=== PATIENT | female | born 1965 | race Caucasian/White ===

== ENCOUNTER 2016-03-29 12:03 | Emergency (ER) | payer MEDICAID ==
[~2016-03-29] VITALS: Ht 157.5 cm; Wt 95.3 kg
[2016-03-29 12:35] VITALS: BP 136/69
== END 2016-03-29 14:32 | disposition home or self-care (01) ==
LOC: ER 12:03
DX: S29.012A Strain of muscle and tendon of back wall of thorax, initial encounter (principal); E11.9 Type 2 diabetes mellitus without complications; V49.9XXA Car occupant (driver) (passenger) injured in unspecified traffic accident, initial encounter; Y93.89 Activity, other specified; Y99.8 Other external cause status; Y92.488 Other paved roadways as the place of occurrence of the external cause

== ENCOUNTER 2019-04-06 09:10 | Emergency (ER) | payer MEDICAID ==
[~2019-04-06] VITALS: Ht 157.5 cm; Wt 97.5 kg
[2019-04-06 09:30] VITALS: BP 147/78
== END 2019-04-06 11:15 | disposition home or self-care (01) ==
LOC: ER 09:10
DX: S92.912A Unspecified fracture of left toe(s), initial encounter for closed fracture (principal); W22.8XXA Striking against or struck by other objects, initial encounter; Y93.01 Activity, walking, marching and hiking; Y92.89 Other specified places as the place of occurrence of the external cause; Y99.8 Other external cause status
CPT/HCPCS: 73630

== ENCOUNTER 2019-08-26 10:59 | Emergency (ER) | payer MEDICAID ==
[~2019-08-26] VITALS: Ht 157.5 cm; Wt 98.0 kg
[2019-08-26] MEDS ORDERED: FLUORESCEIN SOD 1 MG TEST STRIP RIGHTEYE ONE (12:15)
[2019-08-26] MEDS ORDERED: TETRACAINE HCL 0.5% OPTH(EYE) SOLN 4ML RIGHTEYE ONE (12:15)
[2019-08-26 12:35] VITALS: BP 123/64
== END 2019-08-26 12:40 | disposition home or self-care (01) ==
LOC: ER 10:59
DX: H10.9 Unspecified conjunctivitis (principal); E11.9 Type 2 diabetes mellitus without complications

== ENCOUNTER 2022-02-14 14:15 | Emergency (ER) | payer MEDICAID ==
[~2022-02-14] VITALS: Ht 157.5 cm; Wt 90.2 kg
[2022-02-14 18:49] VITALS: BP 131/67
== END 2022-02-14 19:08 | disposition home or self-care (01) ==
LOC: ER 14:15
DX: S92.421A Displaced fracture of distal phalanx of right great toe, initial encounter for closed fracture (principal); E11.9 Type 2 diabetes mellitus without complications; I10 Essential (primary) hypertension; Z90.49 Acquired absence of other specified parts of digestive tract; Z87.442 Personal history of urinary calculi; W01.0XXA Fall on same level from slipping, tripping and stumbling without subsequent striking against object, initial encounter; Y93.89 Activity, other specified; Y92.89 Other specified places as the place of occurrence of the external cause; Y99.8 Other external cause status
CPT/HCPCS: 73630